=== PATIENT | male | born 2000 | race Caucasian/White ===

== ENCOUNTER 2019-04-02 12:58 | Emergency (ER) | payer SELFPAY ==
[~2019-04-02] VITALS: Ht 195.6 cm; Wt 95.3 kg
--- NOTE | 2019-04-02 13:33 | PHYS DOC ---
Past Medical History Past Medical History: No Pertinent History Past Surgical History: No Surgical History Alcohol Use: None Drug Use: None Adult General Chief Complaint Chief Complaint: SUICDAL IDEATION HPI HPI Patient is a 18 year old male who presents with suicide attempt today by [place] the [place] and EMS states that he swam ashore. Patient states that he try to hurt himself because his family kicked him out of the house over his child's mother not taking the truck back to his dad's house over the weekend while he was out of town. Patient states he has now lost car, lost house, lost his job. Patient states that he does not remember drinking alcohol today but states that EMS told him that he had been. Patient denies any drug use. Patient is complaining of aching cervical spine pain 6 out of 10. Review of Systems Review of Systems Constitutional: Denies fever or chills [] Eyes: Denies change in visual acuity, redness, or eye pain [] HENT: Denies nasal congestion or sore throat [] Respiratory: Denies cough or shortness of breath [] Cardiovascular: No additional information not addressed in HPI [] GI: Denies abdominal pain, nausea, vomiting, bloody stools or diarrhea [] : Denies dysuria or hematuria [] Musculoskeletal: cervical back pain or joint pain [] Integument: Denies rash or skin lesions [] Neurologic: Denies headache, focal weakness or sensory changes [] All other systems were reviewed and found to be within normal limits, except as documented in this note. Current Medications Current Medications Current Medications Medications (Trade) Dose Ordered Sig/[facility] Start Time Stop Time Status Last Admin Dose Admin Acetaminophen/ Hydrocodone Bitart (Lortab 5/325) 1 tab 1X ONCE 04/02/19 14:30 04/02/19 14:31 DC 04/02/19 14:55 1 TAB Allergies Allergies Allergies Coded Allergies Type Severity Reaction Last Updated Verified No Known Drug Allergies 04/02/19 No Physical Exam Physical Exam Constitutional: Well developed, well nourished, no acute distress, non-toxic appearance. [] HENT: Normocephalic, atraumatic, bilateral external ears normal, oropharynx moist, no oral exudates, nose normal. [] Eyes: PERRLA, EOMI, conjunctiva normal, no discharge. [] Neck: Normal range of motion, no tenderness, supple, no stridor. [] Cardiovascular:Heart rate regular rhythm, no murmur [] Lungs & Thorax: Bilateral breath sounds clear to auscultation [] Abdomen: Bowel sounds normal, soft, no tenderness, no masses, no pulsatile masses. [] Skin: Warm, dry, no erythema, no rash. [] Back: cervical spine tenderness and sides of neck, no CVA tenderness. [] Extremities: No tenderness, no cyanosis, no clubbing, ROM intact, no edema. [] Neurologic: Alert and oriented X 3, normal motor function, normal sensory function, no focal deficits noted. [] Psychologic: Affect normal, judgement normal, mood normal. [] Current Patient Data Vital Signs Vital Signs Date Time Temp Pulse Resp B/P (MAP) Pulse Ox O2 Delivery O2 Flow Rate FiO2 04/02/19 14:55 20 04/02/19 13:10 97.1 70 112/56 (74) 98 Room Air 97.1 Lab Values Laboratory Tests Test 04/02/19 13:30 White Blood Count 7.1 x10^3/uL (4.0-11.0) Red Blood Count 4.94 x10^6/uL (4.30-5.70) Hemoglobin 14.2 g/dL (13.0-17.5) Hematocrit 42.9 % (39.0-53.0) Mean Corpuscular Volume 87 fL (79-100) Mean Corpuscular Hemoglobin 29 pg (25-35) Mean Corpuscular Hemoglobin Concent 33 g/dL (31-37) Red Cell Distribution Width 14.4 % (11.5-14.5) Platelet Count 154 x10^3/uL (140-400) Neutrophils (%) (Auto) 83 % (31-73) H Lymphocytes (%) (Auto) 11 % (24-48) L Monocytes (%) (Auto) 5 % (0-9) Eosinophils (%) (Auto) 0 % (0-3) Basophils (%) (Auto) 1 % (0-3) Neutrophils # (Auto) 5.9 x10^3uL (1.8-7.7) Lymphocytes # (Auto) 0.8 x10^3/uL (1.0-4.8) L Monocytes # (Auto) 0.4 x10^3/uL (0.0-1.1) Eosinophils # (Auto) 0.0 x10^3/uL (0.0-0.7) Basophils # (Auto) 0.1 x10^3/uL (0.0-0.2) Sodium Level 143 mmol/L (136-145) Potassium Level 3.9 mmol/L (3.5-5.1) Chloride Level 106 mmol/L (98-107) Carbon Dioxide Level 21 mmol/L (21-32) Anion Gap 16 (6-14) H Blood Urea Nitrogen 13 mg/dL (8-26) Creatinine 1.0 mg/dL (0.7-1.3) Estimated GFR (Cockcroft-Gault) 95.3 BUN/Creatinine Ratio 13 (6-20) Glucose Level 88 mg/dL (70-99) Calcium Level 9.1 mg/dL (8.5-10.1) Total Bilirubin 2.1 mg/dL (0.2-1.0) H Aspartate Amino Transferase (AST) 41 U/L (15-37) H Alanine Aminotransferase (ALT) 23 U/L (16-63) Alkaline Phosphatase 54 U/L (46-116) Total Protein 6.9 g/dL (6.4-8.2) Albumin 3.9 g/dL (3.4-5.0) Albumin/Globulin Ratio 1.3 (1.0-1.7) Ethyl Alcohol Level 64 mg/dL (0-10) H Laboratory Tests 04/02/19 13:30 Laboratory Tests 04/02/19 13:30 EKG EKG [] Radiology/Procedures Radiology/Procedures [] Impressions: [facility] [address] [place], [place] [id number] IMAGING REPORT Signed PATIENT: ROSENDO KHAN ACCOUNT: [id number] : 2000 LOCATION: ER AGE: 18 SEX: M EXAM STATUS: REG ER ORD. PHYSICIAN: ABIMAEL KOLB APRN REASON: JUMPED OFF A BRIDGE TODAY, NECK PAIN. PROCEDURE: CT HEAD AND CERVICAL SPINE WO Examination: CT HEAD AND CERVICAL SPINE WO History: Pain Comparison/Correlation: None Findings: Axial images of the head and neck were obtained without contrast. Sagittal and coronal reformatted images of the cervical spine were provided. Ventricles are normal size. No intracranial hemorrhage, midline shift, or mass effect. Minimal opacification of the left ethmoid air cells is noted. Alignment is normal. Vertebral body heights and disc spaces are mostly adequate. Mild C6/7 disc space narrowing is present. Neural foramina are patent. Soft tissues of neck are unremarkable. No fracture or bony destruction. Impression: No intracranial hemorrhage. Mild C6/7 disc space narrowing. PQRS Compliance Statement: One or more of the following individualized dose reduction techniques were utilized for this examination: 1. Automated exposure control 2. Adjustment of the mA and/or kV according to patient size 3. Use of iterative reconstruction technique Electronically signed by: Oneal Mcclendon MD (04/02/2019 2:01 PM) [id number] DICTATED and SIGNED BY: ONEAL MCCLENDON MD DATE: 04/02/19 1401 [facility] [address] [place] [address] IMAGING REPORT Signed PATIENT: ROSENDO KHAN ACCOUNT: [id number] : 2000 LOCATION: ER AGE: 18 SEX: M EXAM STATUS: REG ER ORD. PHYSICIAN: ABIMAEL KOLB APRN REASON: JUMPED OFF A BRIDGE TODAY, HEAD INJURY, LOC, NECK, BACK PAIN PROCEDURE: CT THORACIC SPINE WO CONTRAST CT scan of the thoracic and lumbar spine without contrast 04/02/2019 CLINICAL HISTORY: Patient jumped off a bridge earlier today. Mid and low back pain. TECHNIQUE: Unenhanced, contiguous, 0.625 mm axial sections were obtained through the thoracic and lumbar spine. 3 mm reconstructed sagittal, axial and coronal images were obtained. One or more of the following individualized dose reduction techniques were utilized for this study: 1. Automated exposure control. 2. Adjustment of the mA and/or kV according to patient size. 3. Use of iterative reconstruction technique. FINDINGS: Sagittal and coronal reconstructed images demonstrate minimal S-shaped curvature of the thoracolumbar spine. No fracture or subluxation of the thoracic or lumbar vertebrae seen. IMPRESSION: No fracture or subluxation thoracic or lumbar vertebrae is seen. Electronically signed by: Pa Braxton MD (04/02/2019 2:18 PM) [id number] DICTATED and SIGNED BY: PA BRAXTON MD DATE: 04/02/19 1418 [facility] [address] [place] [address] IMAGING REPORT Signed PATIENT: ROSENDO KHAN ACCOUNT: [id number] : 2000 LOCATION: ER AGE: 18 SEX: M EXAM STATUS: REG ER ORD. PHYSICIAN: ABIMAEL KOLB APRN REASON: chest pain PROCEDURE: CHEST PA & LATERAL AP and Lateral Views of the Chest 04/02/2019 1:16 PM Indication: Chest pain Comparison: None Findings: There is no focal consolidation or infiltrate identified. The cardiomediastinal silhouette is within normal limits. There is no evidence of pneumothorax or pleural effusion. No acute osseous abnormalities are identified. Impression: No evidence of acute cardiopulmonary process. Electronically signed by: Cordell Diallo MD (04/02/2019 2:38 PM) [id number] DICTATED and SIGNED BY: CORDELL DIALLO MD DATE: 04/02/19 1438 Course & Med Decision Making Course & Med Decision Making Patient is a 18 year old male who presents with suicide attempt today [place] the [address] and EMS states that he swam ashore. Patient states that he try to hurt himself because his family kicked him out of the house over his child's mother not taking the truck back to his dad's house over the weekend while he was out of town. Patient states he has now lost car, lost house, lost his job. Patient states that he does not remember drinking alcohol today but states that EMS told him that he had been. Patient denies any drug use. Patient is complaining of aching cervical spine pain 6 out of 10. Patient denies chest pain, shortness of breath, nausea, vomiting, headache, dizziness, visual changes, any numbness or tingling. Patient has equal lpn private duty and strength in all extremities. ROM in all extremities is intact. Patient is able to rotate neck. C-spine is in place. Patient has no abrasion, bruising or deformity seen on the patient's body. Alert and Oriented and speaks in full sentences. Patient does have cervical spine tenderness with palpation along with the side of his neck. Abdomen is soft and nontender. Lungs are clear to auscultation in all lobes. Heart rate regular without murmur. There is no crepitus or tenderness felt when palpating ribs or chest. Patient states he does not think he lost consciousness but everything is a blur after he jumped. MINDA. 1:1 observation initiated and PAT consult is ordered. CT scan of head, lumbar and thoracic spine show no acute findings. CT Cervical spine show C6-7 narrowing. Chest x-ray shows no acute findings. Patient has been assessed by Nereyda from PAT team in the patient has been accepted to [facility] facility by Dr. Hernandez. Patient refusing to give Urine sample. Dragon Disclaimer Dragon Disclaimer This electronic medical record was generated, in whole or in part, using a voice recognition dictation system. Departure Departure Impression: Primary Impression: Suicidal behavior with attempted self-injury Disposition: 65 XFER TO PSYCH HOSP/UNIT Condition: STABLE Referrals: UNKNOWN PCP NAME (PCP) Patient Instructions: Suicidal Feelings, How to Help Yourself Additional Instructions: Follow up with primary care after you have been released from [facility]. ABIMAEL KOLB APRN Apr 02, 2019 13:33
[2019-04-02 13:43] LABS: BASO # 0.1 x10^3/uL (0.0-0.2); BASO % 1 % (0-3); EOS % 0 % (0-3); HEMATOCRIT 42.9 % (39.0-53.0); HEMOGLOBIN 14.2 g/dL (13.0-17.5); LYMPH # 0.8 x10^3/uL (1.0-4.8); LYMPH % 11 % (24-48); MEAN CORPUSCULAR HEMOGLOBIN 29 pg (25-35); MEAN CORPUSCULAR HGB CONC 33 g/dL (31-37); MEAN CORPUSCULAR VOLUME 87 fL (79-100); MONO # 0.4 x10^3/uL (0.0-1.1); MONO % 5 % (0-9); NEUT # 5.9 x10^3uL (1.8-7.7); NEUT % 83 % (31-73); PLATELET COUNT 154 x10^3/uL (140-400); RED BLOOD COUNT 4.94 x10^6/uL (4.30-5.70); RED CELL DISTRIBUTION WIDTH 14.4 % (11.5-14.5); WHITE BLOOD COUNT 7.1 x10^3/uL (4.0-11.0)
--- NOTE | 2019-04-02 14:05 | RAD ---
Examination: CT HEAD AND CERVICAL SPINE WO History: Pain Comparison/Correlation: None Findings: Axial images of the head and neck were obtained without contrast. Sagittal and coronal reformatted images of the cervical spine were provided. Ventricles are normal size. No intracranial hemorrhage, midline shift, or mass effect. Minimal opacification of the left ethmoid air cells is noted. Alignment is normal. Vertebral body heights and disc spaces are mostly adequate. Mild C6/7 disc space narrowing is present. Neural foramina are patent. Soft tissues of neck are unremarkable. No fracture or bony destruction. Impression: No intracranial hemorrhage. Mild C6/7 disc space narrowing. PQRS Compliance Statement: One or more of the following individualized dose reduction techniques were utilized for this examination: 1. Automated exposure control 2. Adjustment of the mA and/or kV according to patient size 3. Use of iterative reconstruction technique Electronically signed by: Oneal Shaver MD (04/02/2019 2:01 PM) [id number]
--- NOTE | 2019-04-02 14:21 | RAD ---
CT scan of the thoracic and lumbar spine without contrast 04/02/2019 CLINICAL HISTORY: Patient jumped off a bridge earlier today. Mid and low back pain. TECHNIQUE: Unenhanced, contiguous, 0.625 mm axial sections were obtained through the thoracic and lumbar spine. 3 mm reconstructed sagittal, axial and coronal images were obtained. One or more of the following individualized dose reduction techniques were utilized for this study: 1. Automated exposure control. 2. Adjustment of the mA and/or kV according to patient size. 3. Use of iterative reconstruction technique. FINDINGS: Sagittal and coronal reconstructed images demonstrate minimal S-shaped curvature of the thoracolumbar spine. No fracture or subluxation of the thoracic or lumbar vertebrae seen. IMPRESSION: No fracture or subluxation thoracic or lumbar vertebrae is seen. Electronically signed by: Pa Braxton MD (04/02/2019 2:18 PM) [id number]
[2019-04-02 14:22] LABS: CALCIUM 9.1 mg/dL (8.5-10.1); GFR 95.3; POTASSIUM 3.9 mmol/L (3.5-5.1)
[2019-04-02 14:28] LABS: ALBUMIN 3.9 g/dL (3.4-5.0); ALBUMIN/GLOBULIN RATIO 1.3 (1.0-1.7); TOTAL BILIRUBIN 2.1 mg/dL (0.2-1.0); TOTAL PROTEIN 6.9 g/dL (6.4-8.2)
[2019-04-02] MEDS ORDERED: HYDROcodone/APAP 5/325MG 1 TAB TABLET PO ONE (14:30)
--- NOTE | 2019-04-02 14:42 | RAD ---
AP and Lateral Views of the Chest 04/02/2019 1:16 PM Indication: Chest pain Comparison: None Findings: There is no focal consolidation or infiltrate identified. The cardiomediastinal silhouette is within normal limits. There is no evidence of pneumothorax or pleural effusion. No acute osseous abnormalities are identified. Impression: No evidence of acute cardiopulmonary process. Electronically signed by: Cordell Cantu MD (04/02/2019 2:38 PM) [id number]
[2019-04-02 16:02] VITALS: BP 129/73
[2019-04-02 16:17] LABS: BILIRUBIN,URINE NEGATIVE (NEG); CLARITY,URINE CLEAR; COLOR,URINE YELLOW; NITRITE,URINE NEGATIVE (NEG); PH,URINE 5.5; PROTEIN,URINE NEGATIVE (NEG-TRACE); UROBILINOGEN,URINE 0.2 mg/dL (0.2 mg/dL)
[2019-04-02 16:31] LABS: BACTERIA,URINE 0 /HPF (0-FEW); RBC,URINE 0 /HPF (0-2); SQUAMOUS EPITHELIAL CELL,UR FEW /LPF; WBC,URINE RARE /HPF (0-4)
[2019-04-02 16:32] LABS: BARBITURATES NEG (NEG); BENZODIAZEPINES NEG (NEG); CANNABINOIDS POS (NEG); COCAINE NEG (NEG); METHADONE NEG (NEG); OPIATES NEG (NEG); PHENCYCLIDINE NEG (NEG)
[2019-04-02 16:33] LABS: AMPHETAMINE/METHAMPHETAMINE NEG (NEG)
== END 2019-04-02 16:10 ==
LOC: ER 12:58
DX: T14.91XA Suicide attempt, initial encounter (principal); M54.2 Cervicalgia; M54.6 Pain in thoracic spine; M54.5 Low back pain; X71.3XXA Intentional self-harm by drowning and submersion in natural water, initial encounter; Y93.39 Activity, other involving climbing, rappelling and jumping off; Y92.89 Other specified places as the place of occurrence of the external cause; Y99.8 Other external cause status
CPT/HCPCS: 36415; 70450; 71046; 72125; 72128; 72131; 80053; 80307; 81001; 85025; 99285; G0480